=== PATIENT | female | born 1950 | race Caucasian/White ===

== ENCOUNTER → 2016-05-09 | Outpatient (CLI) | payer OTHER ==
--- NOTE | 2016-05-09 13:01 | MR ---
MRI of the left calf, without contrast. 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 Technique: Axial, sagittal, and sequences of the left calf are obtained. Findings: There is a transverse fracture line involving the mid shaft of the left fibula. This fractu re is associated with periostitis and cortical thickening and adjacent soft tissue edema, although th e fracture line persists. No evidence of entrapment of soft tissue within the fracture. There is bone marrow edema proximal and distal to the fracture in addition to adjacent soft tissue edema. The left tibia has normal MRI appearance. Musculature of the left calf appears normal. Survey imaging of the right calf is normal. Impression: 1. Transverse mid shaft left fibular fracture with features of periostitis and cortical thickening wagner ggesting attempted healing, although the fracture line persists.
== END ==
LOC: FIMAGING 09:59
PROVIDERS: ATTEND Orthopaedic Surgery
DX: S82.422A Displaced transverse fracture of shaft of left fibula, initial encounter for closed fracture (principal)